=== PATIENT | male | born 1965 | race Caucasian/White ===

== ENCOUNTER 2023-05-02 15:29 | Emergency (ER) | payer OTHER ==
[~2023-05-02] VITALS: Ht 167.6 cm; Wt 68.5 kg
[2023-05-02] MEDS ORDERED: METR-147 PO (16:45)
[2023-05-02 17:32] LABS: BASOPHILS # (AUTO) 0.1 K/uL (0.0-0.2); BASOPHILS % (AUTO) 1.3 % (0.0-2.0); EOSINOPHILS # (AUTO) 0.2 K/uL (0.0-0.7); EOSINOPHILS % (AUTO) 3.3 % (0.0-6.0); HEMATOCRIT 46 % (39-51); HEMOGLOBIN 15.7 g/dL (13.5-17.5); LYMPHOCYTES # (AUTO) 2.4 K/uL (0.8-4.8); LYMPHOCYTES % (AUTO) 34.8 % (20.0-44.0); MEAN CORPUSCULAR HEMOGLOBIN 32 PG (26.0-33.0); MEAN CORPUSCULAR HGB CONC 34 g/dl (31.0-36.0); MEAN CORPUSCULAR VOLUME 93 fL (80-96); MONOCYTES # (AUTO) 0.7 K/uL (0.1-1.30); MONOCYTES % (AUTO) 9.6 % (2.0-12.0); NEUTROPHILS # (AUTO) 3.5 K/uL (1.8-8.9); PLATELET COUNT (AUTO) 333 K/uL (150-450); RED BLOOD CELL COUNT(AUTO) 4.95 MIL/uL (4.5-6.0); RED CELL DISTRIBUTION WIDTH 13.1 % (11.5-15.0); WHITE BLOOD COUNT (AUTO) 6.9 K/uL (4.3-11.0)
[2023-05-02 17:49] LABS: CALCIUM, SERUM 9.2 mg/dL (8.5-10.1); CREATININE 0.7 mg/dL (0.6-1.3); POTASSIUM 4.2 mmol/L (3.5-5.1)
[2023-05-02 18:02] LABS: BILIRUBIN,DIRECT 0.1 mg/dL (0.0-0.2); BILIRUBIN,TOTAL 0.6 mg/dL (0.2-1.0); TOTAL PROTEIN, SERUM 7.8 g/dL (6.4-8.2)
[2023-05-02 18:04] LABS: APPEARANCE,URINE CLEAR (CLEAR); BILIRUBIN,URINE NEGATIVE (NEGATIVE); BLOOD, URINE NEGATIVE Ery/uL (NEGATIVE); COLOR,URINE YELLOW (YELLOW); KETONES,URINE NEGATIVE (NEGATIVE); LEUKOCYTE ESTERASE ,URINE 1+ (NEGATIVE); NITRITE, URINE NEGATIVE (NEGATIVE); PROTEIN,URINE NEGATIVE (NEGATIVE); UGLUCOSE TRACE mg/dL (NEGATIVE); UROBILINOGEN,URINE 0.2 EU/dL (0.2)
[2023-05-02 18:10] LABS: ADD URINE CULTURE YES; BACTERIA,URINE 1+ /HPF (None Seen); RBC,URINE 0-2 /HPF (0-2)
[2023-05-02 18:11] LABS: MUCUS,URINE Few /LPF (None Seen)
[2023-05-02] MEDS ORDERED: CEFP200T14 PO (18:51)
[2023-05-02 19:05] VITALS: BP 126/78; TEMP 98.1; O2SAT 100
== END 2023-05-02 19:06 | disposition home or self-care (01) ==
LOC: ER 15:35
DX: N39.0 Urinary tract infection, site not specified (principal); Z20.2 Contact with and (suspected) exposure to infections with a predominantly sexual mode of transmission; I10 Essential (primary) hypertension; E11.9 Type 2 diabetes mellitus without complications; F41.9 Anxiety disorder, unspecified; Z79.899 Other long term (current) drug therapy; Z60.2 Problems related to living alone
CPT/HCPCS: 36415; 80048-TC; 80076-TC; 81001; 83690-TC; 85025-TC; 87086-TC

== ENCOUNTER 2024-06-23 10:33 | Inpatient (IN) | payer OTHER ==
[~2024-06-23] VITALS: Ht 175.3 cm; Wt 84.6 kg
[~2024-06-23 10:33] MED LIST: CEFP200T14 PO; METR-147 PO
[2024-06-23] MEDS ORDERED: ONDANSETRON HCL/PF 4 MG/2 ML VIAL ONE (11:22)
[2024-06-23] MEDS: ONDANSETRON HCL/PF 4 MG/2 ML VIAL IVP ONE (11:31)
[2024-06-23 12:04] LABS: CALCIUM, SERUM 8.8 mg/dL (8.5-10.1); CARBON DIOXIDE 22 mmol/L (21-32); CHLORIDE 92 mmol/L (98-107); CREATININE 1.2 mg/dL (0.6-1.3); GLUCOSE 276 mg/dL (74-106); POTASSIUM 3.8 mmol/L (3.5-5.1); SODIUM SERUM 129 mmol/L (136-145); UREA NITROGEN, BLOOD 10 mg/dL (7-18)
[2024-06-23 12:11] LABS: ALANINE AMINOTRANSFERASE 25 U/L (12-78); ALBUMIN 3.5 g/dL (3.4-5.0); ALKALINE PHOSPHATASE 107 U/L (46-116); ASPARTATE AMINOTRANSFERASE 15 U/L (15-37); BILIRUBIN,DIRECT 0.3 mg/dL (0.0-0.2); BILIRUBIN,TOTAL 0.7 mg/dL (0.2-1.0); LIPASE 14 U/L (16-77); TOTAL PROTEIN, SERUM 8.4 g/dL (6.4-8.2)
[2024-06-23] MEDS ORDERED: FAMOTIDINE/PF INJ 20 MG/2 ML VIAL IV ONE (12:16)
[2024-06-23] MEDS ORDERED: MAG HYDROX/AL HYDROX/SIMETH 30 ML UDC ONE (12:16)
[2024-06-23] MEDS ORDERED: LIDOCAINE VISCOUS 2% UD 15 ML UDC ONE (12:16)
[2024-06-23 12:24] LABS: BASOPHILS # (AUTO) 0.1 K/uL (0.0-0.2); BASOPHILS % (AUTO) 0.4 % (0.0-2.0); HEMATOCRIT 50 % (39-51); HEMOGLOBIN 17.2 g/dL (13.5-17.5); LYMPHOCYTES # (AUTO) 0.9 K/uL (0.8-4.8); LYMPHOCYTES % (AUTO) 4.3 % (20.0-44.0); MEAN CORPUSCULAR HEMOGLOBIN 32 PG (26.0-33.0); MEAN CORPUSCULAR HGB CONC 35 g/dl (31.0-36.0); MEAN CORPUSCULAR VOLUME 93 fL (80-96); MONOCYTES # (AUTO) 2.1 K/uL (0.1-1.30); MONOCYTES % (AUTO) 9.8 % (2.0-12.0); NEUTROPHILS # (AUTO) 18.6 K/uL (1.8-8.9); NEUTROPHILS % (AUTO) 85.5 % (43.0-81.0); PLATELET COUNT (AUTO) 278 K/uL (150-450); RED BLOOD CELL COUNT(AUTO) 5.39 MIL/uL (4.5-6.0); RED CELL DISTRIBUTION WIDTH 12.9 % (11.5-15.0); WHITE BLOOD COUNT (AUTO) 21.8 K/uL (4.3-11.0)
[2024-06-23] MEDS: LIDOCAINE VISCOUS 2% UD 15 ML UDC MM ONE (12:28)
[2024-06-23] MEDS: MAG HYDROX/AL HYDROX/SIMETH 30 ML UDC PO ONE (12:28)
[2024-06-23] MEDS: FAMOTIDINE/PF INJ 20 MG/2 ML VIAL IV ONE (12:28)
[2024-06-23] MEDS: IV NS 0.9% 1,000 ML IV ONE (12:44)
[2024-06-23 13:01] LABS: APPEARANCE,URINE CLEAR (CLEAR); BILIRUBIN,URINE NEGATIVE (NEGATIVE); BLOOD, URINE NEGATIVE Ery/uL (NEGATIVE); COLOR,URINE YELLOW (YELLOW); KETONES,URINE 3+ mg/dL (NEGATIVE); LEUKOCYTE ESTERASE ,URINE NEGATIVE (NEGATIVE); NITRITE, URINE NEGATIVE (NEGATIVE); PROTEIN,URINE 2+ mg/dl (NEGATIVE); UGLUCOSE 2+ mg/dL (NEGATIVE); UROBILINOGEN,URINE 0.2 EU/dL (0.2)
[2024-06-23] MEDS ORDERED: METOCLOPRAMIDE HCL 10 MG/2 ML VIAL ONE (13:02)
[2024-06-23] MEDS ORDERED: diphenhydrAMINE HCL 50 MG/ML VIAL ONE (13:02)
[2024-06-23 13:09] LABS: ADD URINE CULTURE NO; BACTERIA,URINE Rare /HPF (None Seen); SQUAMOUS EPITHELIAL CELL,UR Few /HPF (None Seen); WBC,URINE 0-2 /HPF (0-3)
[2024-06-23] MEDS: diphenhydrAMINE HCL 50 MG/ML VIAL IV ONE (13:10)
[2024-06-23] MEDS: METOCLOPRAMIDE HCL 10 MG/2 ML VIAL IV ONE (13:11)
[2024-06-23] MEDS ORDERED: VANCOMYCIN 1 GM /D5W 250 ML PB IV ONE (13:32)
[2024-06-23] MEDS ORDERED: PIPERACI/TAZO 3.375GM/D5W 50ML PB IV ONE (13:32)
[2024-06-23] MEDS: IV NS 0.9% 1,000 ML BAG IV ONE (13:41)
[2024-06-23] MEDS: PIPERACILLIN /TAZOBACTAM 3.375 G in IV D5W 50 ML IV ONE (13:47)
[2024-06-23] MEDS ORDERED: ONDANSETRON HCL/PF 4 MG/2 ML VIAL IVP PRN (14:00)
[2024-06-23] MEDS ORDERED: ENOXAPARIN SODIUM 40 MG/0.4 ML DISP.SYRIN SQ SCH (14:00)
[2024-06-23] MEDS: VANCOMYCIN 1 GM in IV D5W 250 ML IV ONE (14:00)
[2024-06-23 14:02] LABS: LACTIC ACID 3.9 mmol/L (0.4-2.0)
[2024-06-23] MEDS ORDERED: GLIM2TAB31 PO (14:14)
[2024-06-23 17:45] VITALS: BP 138/72; TEMP 98.4; O2SAT 97
[2024-06-23] MEDS: PANTOPRAZOLE 40 MG VIAL IV SCH (18:07)
[2024-06-23 20:00] VITALS: BP 135/78; TEMP 98.4; O2SAT 98
[2024-06-23] MEDS: ZOSYN IVPB 3.375 G in IV D5W 50ml IV SCH (20:18)
[2024-06-23 22:00] VITALS: BP 140/79; TEMP 97.7; O2SAT 97
[2024-06-24] VITALS: BP 133/93; TEMP 98.4; O2SAT 97
[2024-06-24] MEDS: IV NS 0.9% 1,000 ML IV PRN (00:47)
[2024-06-24] MEDS: VANCOMYCIN 1 GM in IV D5W 250ml IV SCH (01:30)
[2024-06-24 04:00] VITALS: BP 137/80; TEMP 99; O2SAT 96
[2024-06-24 08:00] VITALS: BP 137/80; TEMP 99; O2SAT 96
[2024-06-24 12:00] VITALS: BP 122/72; TEMP 98.9; O2SAT 97
[2024-06-24 16:00] VITALS: BP 127/75; TEMP 98.7; O2SAT 97
[2024-06-24 18:17] LABS: CALCIUM, SERUM 8.6 mg/dL (8.5-10.1); CREATININE 0.9 mg/dL (0.6-1.3); MAGNESIUM 2.1 mg/dL (1.8-2.4); PHOSPHORUS 2.5 mg/dL (2.5-4.9); POTASSIUM 3.2 mmol/L (3.5-5.1)
[2024-06-24 20:00] VITALS: BP_SYST 124; BP_SYST 130; BP_DIAS 71; BP_DIAS 72; TEMP 99; TEMP 99.5; O2SAT 94; O2SAT 95
[2024-06-24] MEDS: POTASSIUM CHLORIDE 20 MEQ TAB.PRT.SR PO ONE ×2 (20:00→21:16)
[2024-06-24 20:37] LABS: BASOPHILS % (AUTO) 0.3 % (0.0-2.0); HEMATOCRIT 39 % (39-51); LYMPHOCYTES # (AUTO) 1.4 K/uL (0.8-4.8); LYMPHOCYTES % (AUTO) 8.1 % (20.0-44.0); MEAN CORPUSCULAR HEMOGLOBIN 32 PG (26.0-33.0); MEAN CORPUSCULAR HGB CONC 35 g/dl (31.0-36.0); MEAN CORPUSCULAR VOLUME 90 fL (80-96); MONOCYTES # (AUTO) 1.9 K/uL (0.1-1.30); MONOCYTES % (AUTO) 10.7 % (2.0-12.0); NEUTROPHILS # (AUTO) 14.4 K/uL (1.8-8.9); NEUTROPHILS % (AUTO) 80.9 % (43.0-81.0); PLATELET COUNT (AUTO) 231 K/uL (150-450); RED CELL DISTRIBUTION WIDTH 12.9 % (11.5-15.0); WHITE BLOOD COUNT (AUTO) 17.8 K/uL (4.3-11.0)
[2024-06-25] VITALS: BP 130/71; TEMP 99.5; O2SAT 95
[2024-06-25 04:00] VITALS: BP 130/71; TEMP 98.9; O2SAT 95
[2024-06-25 08:00] VITALS: BP 138/78; TEMP 98.4; TEMP 98.7; O2SAT 94; O2SAT 95
[2024-06-25 12:00] VITALS: BP 128/77; TEMP 98.6; O2SAT 95
[2024-06-25] MEDS ORDERED: IPRATROPIUM NEB FS 0.5 MG/2.5 ML AMPUL.NEB NEB PRN (13:30)
[2024-06-25] MEDS ORDERED: ALBUTEROL HALF STRENGTH 1.25 MG/3 ML VIAL.NEB NEB PRN (13:30)
[2024-06-25] MEDS: VANCOMYCIN HCL 1.25 GM in IV D5W 250 ML IV SCH (13:36)
[2024-06-25 14:29] LABS: HIV-1 p24 ANTIGEN NON REACTIVE (NONREACTIVE); HIV-1/2 ANTIBODY NON REACTIVE (NONREACTIVE)
[2024-06-25 16:00] VITALS: BP 140/85; TEMP 99.9; O2SAT 95
[2024-06-25] MEDS: ACETAMINOPHEN 325 MG TABLET PO PRN (17:16)
[2024-06-25 17:57] LABS: BASOPHILS % (AUTO) 0.1 % (0.0-2.0); HEMATOCRIT 40 % (39-51); HEMOGLOBIN 13.7 g/dL (13.5-17.5); LYMPHOCYTES # (AUTO) 0.9 K/uL (0.8-4.8); LYMPHOCYTES % (AUTO) 5.1 % (20.0-44.0); MEAN CORPUSCULAR HEMOGLOBIN 31 PG (26.0-33.0); MEAN CORPUSCULAR HGB CONC 35 g/dl (31.0-36.0); MEAN CORPUSCULAR VOLUME 90 fL (80-96); MONOCYTES # (AUTO) 1.8 K/uL (0.1-1.30); MONOCYTES % (AUTO) 9.9 % (2.0-12.0); NEUTROPHILS # (AUTO) 15.5 K/uL (1.8-8.9); NEUTROPHILS % (AUTO) 84.9 % (43.0-81.0); PLATELET COUNT (AUTO) 291 K/uL (150-450); RED BLOOD CELL COUNT(AUTO) 4.38 MIL/uL (4.5-6.0); WHITE BLOOD COUNT (AUTO) 18.2 K/uL (4.3-11.0)
[2024-06-25 18:07] LABS: CALCIUM, SERUM 8.2 mg/dL (8.5-10.1); CREATININE 0.8 mg/dL (0.6-1.3); MAGNESIUM 2.2 mg/dL (1.8-2.4); PHOSPHORUS 1.9 mg/dL (2.5-4.9); POTASSIUM 3.1 mmol/L (3.5-5.1)
[2024-06-25 18:19] LABS: URIC ACID 2.4 mg/dL (2.6-7.2)
[2024-06-25] MEDS: POTASSIUM CHLORIDE 20 MEQ TAB.PRT.SR PO SCH (18:27)
[2024-06-25 20:00] VITALS: BP 121/72; TEMP 98.1; O2SAT 95
[2024-06-26] VITALS: BP 137/80; TEMP 98.4; O2SAT 94
[2024-06-26 04:00] VITALS: BP 143/86; TEMP 99; O2SAT 95
[2024-06-26 07:36] LABS: BASOPHILS % (AUTO) 0.1 % (0.0-2.0); HEMATOCRIT 39 % (39-51); HEMOGLOBIN 13.5 g/dL (13.5-17.5); LYMPHOCYTES # (AUTO) 1.2 K/uL (0.8-4.8); LYMPHOCYTES % (AUTO) 6.3 % (20.0-44.0); MEAN CORPUSCULAR HEMOGLOBIN 32 PG (26.0-33.0); MEAN CORPUSCULAR HGB CONC 35 g/dl (31.0-36.0); MEAN CORPUSCULAR VOLUME 91 fL (80-96); NEUTROPHILS # (AUTO) 16.4 K/uL (1.8-8.9); NEUTROPHILS % (AUTO) 83.6 % (43.0-81.0); PLATELET COUNT (AUTO) 325 K/uL (150-450); RED BLOOD CELL COUNT(AUTO) 4.23 MIL/uL (4.5-6.0); RED CELL DISTRIBUTION WIDTH 12.8 % (11.5-15.0); WHITE BLOOD COUNT (AUTO) 19.7 K/uL (4.3-11.0)
[2024-06-26 08:00] VITALS: BP 146/84; TEMP 98.2; O2SAT 98
[2024-06-26 08:12] LABS: CALCIUM, SERUM 8.3 mg/dL (8.5-10.1); CREATININE 0.6 mg/dL (0.6-1.3); MAGNESIUM 2.2 mg/dL (1.8-2.4); PHOSPHORUS 2.2 mg/dL (2.5-4.9); POTASSIUM 3.3 mmol/L (3.5-5.1)
[2024-06-26] MEDS: PANTOPRAZOLE 40 MG TABLET.DR PO SCH (09:43)
[2024-06-26] MEDS: POTASSIUM CHLORIDE 20 MEQ TAB.PRT.SR PO SCH (10:40)
[2024-06-26 12:00] VITALS: BP 159/82; TEMP 99.3; O2SAT 99
[2024-06-26] MEDS: VANCOMYCIN HCL 1.25 GM in IV D5W 250 ML IV SCH (13:29)
[2024-06-26] MEDS: KETOROLAC TROMETHAMINE 10 MG TABLET PO PRN (15:39)
[2024-06-26] MEDS: K PHOS NEUTRAL 250 MG TABLET PO ONE (15:40)
[2024-06-26 16:00] VITALS: BP 119/102; TEMP 99.9; O2SAT 98
[2024-06-26] MEDS ORDERED: KETOROLAC TROMETHAMINE 15 MG/ML VIAL IV PRN (18:30)
[2024-06-26] MEDS: ALBUTEROL FS 2.5 MG/0.5 ML VIAL.NEB HHN SCH (19:30)
[2024-06-26] MEDS: IPRATROPIUM NEB FS 0.5 MG/2.5 ML AMPUL.NEB NEB SCH (19:30)
[2024-06-26 20:00] VITALS: BP_SYST 158; BP_SYST 161; BP_DIAS 76; BP_DIAS 85; TEMP 98.1; O2SAT 95
[2024-06-27] VITALS: BP 139/81; TEMP 99.8; TEMP 99.9; O2SAT 95
[2024-06-27 04:00] VITALS: BP 142/78; TEMP 98.6; O2SAT 95
[2024-06-27 07:00] VITALS: BP 149/84; TEMP 97.9; O2SAT 93
[2024-06-27 07:06] LABS: CREATININE 0.7 mg/dL (0.6-1.3); POTASSIUM 2.9 mmol/L (3.5-5.1)
[2024-06-27] MEDS: POTASSIUM CHLORIDE 20 MEQ TAB.PRT.SR PO SCH (10:21)
[2024-06-27] MEDS ORDERED: ALBUTEROL HALF STRENGTH 1.25 MG/3 ML VIAL.NEB IH PRN (11:09)
[2024-06-27 11:30] VITALS: BP 126/74; TEMP 98.8; O2SAT 93
[2024-06-27] MEDS ORDERED: IPRATROPIUM NEB FS 0.5 MG/2.5 ML AMPUL.NEB HHN PRN (11:30)
[2024-06-27] MEDS: IPRATROPIUM NEB FS 0.5 MG/2.5 ML AMPUL.NEB HHN SCH (13:30)
[2024-06-27 16:00] VITALS: BP 133/88; TEMP 99.3; O2SAT 95
[2024-06-27 20:00] VITALS: BP 131/80; TEMP 98.6; O2SAT 94
[2024-06-28] VITALS: BP 142/75; TEMP 98.8; O2SAT 92
[2024-06-28 04:00] VITALS: BP 126/75; TEMP 98.6; O2SAT 93
[2024-06-28 07:15] LABS: BASOPHILS % (AUTO) 0.3 % (0.0-2.0); EOSINOPHILS % (AUTO) 0.2 % (0.0-6.0); HEMATOCRIT 37 % (39-51); LYMPHOCYTES # (AUTO) 1.1 K/uL (0.8-4.8); LYMPHOCYTES % (AUTO) 8.4 % (20.0-44.0); MEAN CORPUSCULAR HEMOGLOBIN 32 PG (26.0-33.0); MEAN CORPUSCULAR HGB CONC 35 g/dl (31.0-36.0); MEAN CORPUSCULAR VOLUME 92 fL (80-96); MONOCYTES # (AUTO) 1.7 K/uL (0.1-1.30); MONOCYTES % (AUTO) 13.4 % (2.0-12.0); NEUTROPHILS % (AUTO) 77.7 % (43.0-81.0); PLATELET COUNT (AUTO) 408 K/uL (150-450); RED BLOOD CELL COUNT(AUTO) 4.07 MIL/uL (4.5-6.0); RED CELL DISTRIBUTION WIDTH 12.9 % (11.5-15.0); WHITE BLOOD COUNT (AUTO) 12.9 K/uL (4.3-11.0)
[2024-06-28 07:22] LABS: CALCIUM, SERUM 8.3 mg/dL (8.5-10.1); CREATININE 0.7 mg/dL (0.6-1.3)
[2024-06-28 08:30] VITALS: BP 126/78; TEMP 100.2; O2SAT 95
[2024-06-28 10:00] VITALS: TEMP 98.9
[2024-06-28] MEDS: POTASSIUM CHLORIDE 20 MEQ TAB.PRT.SR PO SCH (10:48)
[2024-06-28] MEDS ORDERED: AMOX-430 PO (11:49)
== END 2024-06-28 18:11 | disposition home or self-care (01) | DRG 720 ==
LOC: ER 10:37 → TELE1 15:01 → TELE 21:48
PROVIDERS: ADMIT Nurse Practitioner Acute Care; ATTEND Internal Medicine
DX: A41.9 Sepsis, unspecified organism (principal); E87.1 Hypo-osmolality and hyponatremia; K76.0 Fatty (change of) liver, not elsewhere classified; J18.9 Pneumonia, unspecified organism; E86.0 Dehydration; E11.9 Type 2 diabetes mellitus without complications; I10 Essential (primary) hypertension; K21.9 Gastro-esophageal reflux disease without esophagitis; Z79.84 Long term (current) use of oral hypoglycemic drugs; R11.15 Cyclical vomiting syndrome unrelated to migraine; F12.188 Cannabis abuse with other cannabis-induced disorder; J98.4 Other disorders of lung
CPT/HCPCS: 36415; 71045-TC; 71250-TC; 80048-TC; 80076-TC; 80202-TC; 81001; 82533; 83605-TC; 83690-TC; 83735-TC; 83935-TC; 84100-TC; 84300-TC; 84443-TC; 84484-TC; 84550-TC; 85025-TC; 86480; 86803; 87040-TC; 87081-TC; 87806; 87899; 93307-TC; A4223; G0378; J1200; J2405; J2470; J2543; J2765; J3370; J3490; J7030; J7040; J7050; J7060

== ENCOUNTER 2024-08-14 11:44 | Emergency (ER) | payer OTHER ==
[~2024-08-14] VITALS: Ht 175.3 cm; Wt 74.4 kg
[~2024-08-14 11:44] MED LIST changes: +AMOX-430 PO; -CEFP200T14 PO; +GLIM2TAB31 PO; -METR-147 PO
[2024-08-14 16:29] VITALS: BP 138/96; TEMP 98.6; O2SAT 96
== END 2024-08-14 16:29 | disposition home or self-care (01) ==
LOC: ER 11:59
DX: J85.2 Abscess of lung without pneumonia (principal); E11.9 Type 2 diabetes mellitus without complications; I10 Essential (primary) hypertension; R06.02 Shortness of breath; R06.2 Wheezing; R05.9 Cough, unspecified; Z87.01 Personal history of pneumonia (recurrent); Z60.2 Problems related to living alone